=== PATIENT | female | born 1965 | race Caucasian/White ===

== ENCOUNTER 2023-01-10 18:30 | Emergency (ER) | payer OTHER, MEDICAID ==
[~2023-01-10] VITALS: Ht 160 cm; Wt 94.3 kg
[2023-01-10 18:55] VITALS: BP_SYST 137
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
[2023-01-10] MEDS ORDERED: IBUPROFEN 800 MG TABLET PO ONE (19:30)
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
[2023-01-10] MEDS ORDERED: KETOROLAC TROMETHAMINE 30 MG VIAL IM ONE (21:00)
[2023-01-10] MEDS ORDERED: IBUP-1971 PO (21:35)
[2023-01-10] MEDS ORDERED: DICL20GE TP (21:35)
[2023-01-10 21:55] VITALS: BP_SYST 137
--- NOTE | 2023-01-10 23:25 | NUR ---
Patient given written and verbal discharge instructions and verbalizes understanding. ER DR. COUGHLIN discussed with patient the results and treatment provided. Patient in stable condition. ID arm band removed. Rx of MOTRIN AND VOLTAREN given. Patient educated on pain management and to follow up with PMD. Pain Scale 0. Opportunity for questions provided and answered. Medication side effect fact sheet provided.
== END 2023-01-10 21:55 | disposition home or self-care (01) ==
LOC: SED 18:30
DX: S16.1XXA Strain of muscle, fascia and tendon at neck level, initial encounter (principal); S39.012A Strain of muscle, fascia and tendon of lower back, initial encounter; S20.219A Contusion of unspecified front wall of thorax, initial encounter; Z79.899 Other long term (current) drug therapy; V49.40XA Driver injured in collision with unspecified motor vehicles in traffic accident, initial encounter; Y93.89 Activity, other specified; Y92.89 Other specified places as the place of occurrence of the external cause; Y99.8 Other external cause status
CPT/HCPCS: 99284; 93005; 72040; 72100; 96372; J1885